=== PATIENT | female | born 1950 | race Caucasian/White ===

== ENCOUNTER 2016-10-27 12:13 | Emergency (ER) | payer MEDICARE, OTHER ==
[~2016-10-27] VITALS: Ht 149.9 cm; Wt 53.2 kg
[~2016-10-27 12:13] MED LIST: CHOLESTEROL MED; GERD MED; [UNRECOGNIZED DRUG - REMARK]
[2016-10-27] MEDS ORDERED: IBUPROFEN 800 MG TABLET PO ONE (13:15)
[2016-10-27] MEDS ORDERED: CYCLOBENZAPRINE HCL 10 MG TABLET PO ONE (13:15)
[2016-10-27 14:14] VITALS: BP 144/79
== END 2016-10-27 15:09 | disposition home or self-care (01) ==
LOC: EMS 12:17
DX: S13.4XXA Sprain of ligaments of cervical spine, initial encounter (principal); K21.9 Gastro-esophageal reflux disease without esophagitis; V49.88XA Car occupant (driver) (passenger) injured in other specified transport accidents, initial encounter; Y93.89 Activity, other specified; Y92.89 Other specified places as the place of occurrence of the external cause; Y99.8 Other external cause status
CPT/HCPCS: 71020; 99284

== ENCOUNTER 2018-11-01 14:21 | Emergency (ER) | payer MEDICARE, OTHER ==
[~2018-11-01] VITALS: Ht 144.8 cm; Wt 53.2 kg
[2018-11-01 14:22] VITALS: BP 145/86
== END 2018-11-01 15:40 | disposition home or self-care (01) ==
LOC: EMS 14:23
DX: L03.031 Cellulitis of right toe (principal); K21.9 Gastro-esophageal reflux disease without esophagitis; Z91.14 Patient's other noncompliance with medication regimen

== ENCOUNTER 2019-10-06 12:24 | Emergency (ER) | payer MEDICARE, OTHER ==
[~2019-10-06] VITALS: Ht 149.9 cm; Wt 53.2 kg
[2019-10-06 12:44] VITALS: BP 147/98
[2019-10-06] MEDS ORDERED: OMEP10 PO (12:51)
[2019-10-06] MEDS ORDERED: PERTUSS(ACELL),DIPH,TET VAC/PF 0.5 ML VIAL IM ONE (13:15)
[2019-10-06] MEDS ORDERED: IBUPROFEN 600 MG TABLET PO ONE (14:00)
== END 2019-10-06 15:04 | disposition home or self-care (01) ==
LOC: EMS 12:29
DX: S91.332A Puncture wound without foreign body, left foot, initial encounter (principal); R03.0 Elevated blood-pressure reading, without diagnosis of hypertension; K21.9 Gastro-esophageal reflux disease without esophagitis; Z79.899 Other long term (current) drug therapy; X58.XXXA Exposure to other specified factors, initial encounter; Y93.89 Activity, other specified; Y92.89 Other specified places as the place of occurrence of the external cause; Y99.8 Other external cause status
CPT/HCPCS: 90471; 90715

== ENCOUNTER 2021-07-22 13:39 | Emergency (ER) | payer MEDICARE, OTHER ==
[~2021-07-22] VITALS: Ht 154.9 cm; Wt 65.9 kg
[~2021-07-22 13:39] MED LIST changes: -CHOLESTEROL MED; -GERD MED; +OMEP10 PO; -[UNRECOGNIZED DRUG - REMARK]
[2021-07-22 13:48] VITALS: BP 135/77
== END 2021-07-22 14:21 | disposition home or self-care (01) ==
LOC: EMS 13:40
DX: U07.1 COVID-19 (principal); R09.81 Nasal congestion
CPT/HCPCS: 99283; U0003

== ENCOUNTER 2025-05-22 21:56 | Emergency (ER) | payer MEDICARE, MEDICAID ==
[~2025-05-22] VITALS: Ht 154.9 cm; Wt 66.0 kg
[~2025-05-22 21:56] MED LIST changes: -OMEP10 PO; +OMEP10CA38 PO
[2025-05-23] MEDS ORDERED: AMOX500C2 PO (00:44)
[2025-05-23] MEDS ORDERED: IBUP-1492 PO (00:44)
[2025-05-23 00:45] VITALS: BP 172/72; PULSE 82; RESP 18; TEMP 98.3; O2SAT 99
[2025-05-23] MEDS: IBUPROFEN 600 MG TABLET PO ONE (00:53)
[2025-05-23] MEDS: AMOXICILLIN TRIHYDRATE 250 MG CAPSULE PO ONE (00:53)
== END 2025-05-23 05:18 | disposition home or self-care (01) ==
LOC: EMS 21:56
DX: K08.89 Other specified disorders of teeth and supporting structures (principal); Z79.899 Other long term (current) drug therapy
CPT/HCPCS: 99283